=== PATIENT | female | born 1945 | race Caucasian/White ===

== ENCOUNTER 2017-11-29 12:39 | Emergency (ER) | payer MEDICARE ==
[2017-11-29 13:36] VITALS: BP 135/68
--- NOTE | 2017-11-29 14:13 | UC ---
Complaint Female HPI - HPI Summary HPI Summary: IN-ROOM NOTE: A 72 y/o F presents to E with c/o dysuria onset two days ago. Associated sx: urgency. She was unable to sleep due to having to use the bathroom. Denies fever , back pain aside from baseline. She is feeling healthy otherwise. Pt is taking Pyridium. Pt recently travelled to [facility]. She's unsure if she's ever had a UTI before. NKDA. Prev hospitalizations in 2017. 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 Pt was seen at [facility] yesterday for follow-up, she sees Dr. Singh. NOTE: Vital signs stable. Afebrile. 5/10 dysuria. Visit hx is significant for hematuria. Pt is not on anti-HTN medications. NURSE'S NOTE: Urinary symptoms that started 2 days ago. Patient called her PCP today, but they had no appointments available. Patient started taking Phenazopyridine yesterday. - History Of Current Complaint Chief Complaint: UCGU Stated Complaint: URINARY ISSUE Hx Obtained From: Patient Onset/Duration: Lasting Days, Still Present Timing: Constant Severity Initially: Moderate Severity Currently: Moderate Pain Intensity: 5 Pain Scale Used: 0-10 Numeric Associated Signs And Symptoms: Negative: Fever, Back Pain - Allergies/Home Medications Allergies/Adverse Reactions: Allergies Allergy/AdvReac Type Severity Reaction Status Date / Time No Known Allergies Allergy Verified 11/29/17 13:35 Home Medications: Home Medications Anastrozole (NF) [Arimidex (NF)] 1 mg PO DAILY 11/29/17 [History Confirmed 11/29] Phenazopyridine HCl [Phenazopyridine 100 mg tab] 100 mg PO Q8HR 11/29/17 [ History Confirmed 11/29/17] PMH/Surg Hx/FS Hx/Imm Hx Previously Healthy: No - carcinoma in L breast Other Cardiovascular History: neg: HTN Other Respiratory History: neg: COPD - Surgical History Surgical History: Yes Surgery Procedure, Year, and Place: hysterectomy, appendectomy, hernia repair x3 with mesh, cholecystectomy, tonsillectomy, lumpectomy on right breast- 2017 - Family History Family History: CA; alz - Social History Occupation: Retired Lives: Alone Alcohol Use: Rare Substance Use Type: None Smoking Status (MU): Former Smoker Review of Systems Constitutional: Negative - fever Genitourinary: Dysuria, Urgency Musculoskeletal: Negative - back pain All Other Systems Reviewed And Are Negative: Yes - Comments Additional Review of Systems Comments: POSITIVE: URGENCY, DYSURIA NEGATIVE: FEVER, BACK PAIN Physical Exam - Summary Physical Exam Summary: Appearance: The patient is well-appearing, is in no pain distress, and is well- nourished. Eyes: Conjunctiva are clear. ENT: The hearing is grossly normal, the pharynx is normal, and the TMs are normal. There is no muffled or hoarse voice. Neck: The neck is supple and there is no lymphadenopathy. Respiratory: The chest is nontender. The lungs are clear, there are normal breath sounds, and there is no respiratory distress. Cardiovascular: Heart is regular rate and rhythm. There is no murmur. Abdomen: The abdomen is soft and nontender. There is no organomegaly. NO CVA TENDERNESS. Bowel sounds: present Musculoskeletal: Strength is intact. The patient moves all extremities. Neurological: The patient is alert. Psychological: The patient displays age appropriate behavior Skin: Negative for rashes. Triage Information Reviewed: Yes Vital Signs: Initial Vital Signs Temp 98.9 F 11/29/17 13:27 Pulse 58 11/29/17 13:27 Resp 20 11/29/17 13:27 BP 135/68 11/29/17 13:27 Pulse Ox 98 11/29/17 13:27 Vital Signs Reviewed: Yes Complaint Female Dx - Course Course Of Treatment: Medications have been included in the original chart and reviewed. Pre-Hypertensive BP reading of 135/68; patient referred to PCP for follow-up. A 72 y/o F presents with urinary sx consistent with cystitis. Dx: cystitis. - Differential Dx/Diagnosis Provider Diagnoses: 1. Cystitis. 2. Elevated blood pressure without diagnosis of hypertension. Discharge - Sign-Out/Discharge Documenting (check all that apply): Patient Departure - DC All imaging exams completed and their final reports reviewed: No Studies - Discharge Plan Condition: Stable Disposition: HOME Prescriptions: Sulfamethox/Trimethoprim DS* [Bactrim DS 800/160 TAB*] 1 tab PO BID #14 tab MDD 2 Referrals: Anastacio Singh MD [Primary Care Provider] - Additional Instructions: PLEASE SEEK CARE AT THE EMERGENCY DEPARTMENT IF SYMPTOMS WORSEN OR IF NEW SYMPTOMS DEVELOP. FOLLOW UP WITH YOUR PRIMARY CARE PHYSICIAN. Your blood pressure reading today was 135/68, indicating HYPERTENSION. Follow- up with your primary care provider within 4 weeks for blood pressure readings and further evaluation. WE DISCUSSED: 1. You have an infection of your bladder. 2. I have given U an antibiotic to take twice a day for 7 days. 3. You should begin to get better within 2 days. You should not have any fever or increased pain. If you have any increased pain or temperature or you are not getting better in 2 days, recheck or call us. 4. I will be here in 2 days and you can call me or come back to see me if you are not getting better. - Billing Disposition and Condition Condition: STABLE Disposition: Home - Attestation Statements Document Initiated by Kelleyibarnav: Yes Documenting Scribe: Sathish Wells Provider For Whom Jonathan is Documenting (Include Credential): Mann Alejandra MD Scribe Attestation: ISathish, scribed for Mann Alejandra MD on 11/29/17 at 1426. Scribe Documentation Reviewed: Yes Provider Attestation: The documentation as recorded by the kelleyibarnav, Sathish Wells accurately reflects the service I personally performed and the decisions made by me, Mann Alejandra MD Lab Results - Lab Results Lab Results: 11/29/17 13:33 POC Urine Color Forsan POC Urine Clarity Clear POC Urine pH 6.0 POC Ur Specif Spur 1.015 POC Urine Protein 2+ A POC Ur Glucose (UA) Trace A POC Urine Ketones Trace A POC Urine Blood 3+ A POC Urine Nitrite Positive A POC Urine Bilirubin 1+ A POC Urine Urobilinogen 1.0 POC U Leukocyte Esteras 3+ A
--- NOTE | 2017-12-01 16:03 | UC ---
- Progress Note Progress Note: caLL patient if symptoms are continuing in anyway Uti culture shows resistance to BActrim will change to Keflex 500 mg po bid for 7 days Discharge - Sign-Out/Discharge Documenting (check all that apply): Post-Discharge Follow Up All imaging exams completed and their final reports reviewed: No Studies - Discharge Plan Condition: Stable Disposition: HOME Prescriptions: Sulfamethox/Trimethoprim DS* [Bactrim DS 800/160 TAB*] 1 tab PO BID #14 tab MDD 2 Referrals: Anastacio Singh MD [Primary Care Provider] - Additional Instructions: PLEASE SEEK CARE AT THE EMERGENCY DEPARTMENT IF SYMPTOMS WORSEN OR IF NEW SYMPTOMS DEVELOP. FOLLOW UP WITH YOUR PRIMARY CARE PHYSICIAN. Your blood pressure reading today was 135/68, indicating HYPERTENSION. Follow- up with your primary care provider within 4 weeks for blood pressure readings and further evaluation. WE DISCUSSED: 1. You have an infection of your bladder. 2. I have given U an antibiotic to take twice a day for 7 days. 3. You should begin to get better within 2 days. You should not have any fever or increased pain. If you have any increased pain or temperature or you are not getting better in 2 days, recheck or call us. 4. I will be here in 2 days and you can call me or come back to see me if you are not getting better. - Billing Disposition and Condition Condition: STABLE Disposition: Home
== END 2017-11-29 14:25 | disposition home or self-care (01) ==
LOC: UCEAST 12:39
DX: N30.90 Cystitis, unspecified without hematuria (principal); R03.0 Elevated blood-pressure reading, without diagnosis of hypertension; Z87.891 Personal history of nicotine dependence
CPT/HCPCS: 81003; 87077; 87086; 87186; 99202; G0463

== ENCOUNTER 2018-10-19 17:43 | Emergency (ER) | payer MEDICARE ==
[2018-10-19 18:38] LABS: ABS Basophils 0.1 10^3/ul (0-0.2); ABS Eosinophils 0.2 10^3/ul (0-0.6); ABS Lymphocytes 2.3 10^3/ul (1.0-4.8); ABS Neutrophils 5.9 10^3/ul (1.5-7.7); Eosinophil % 1.8 %; Hematocrit 43 % (35-47); Hemoglobin 14.2 g/dL (12.0-16.0); Lymphocyte % 24.7 %; Mean Corpuscular HGB Conc 33 g/dL (31-36); Mean Corpuscular Hemoglobin 30 pg (27-31); Mean Corpuscular Volume 90 fL (80-97); Mean Platelet Volume 7.5 fL (7.4-10.4); Nucleated Red Blood Cells % 0.2; Platelet Count 359 10^3/uL (150-450); Red Blood Count 4.77 10^6 /uL (3.70-4.87); Red Cell Distribution Width 13 % (10-15); White Blood Count 9.5 10^3/uL (3.5-10.8)
[2018-10-19 18:43] LABS: INR 0.92 (0.82-1.09)
[2018-10-19 19:01] LABS: Albumin 4.1 g/dL (3.2-5.2); Albumin/Globulin Ratio 1.1 (1-3); BUN/Creatinine Ratio 18.7 (8-20); EGFR African American 73.5 (>60); EGFR Non-African American 60.8 (>60); Globulin 3.6 g/dL (2-4); Total Bilirubin 0.3 mg/dL (0.2-1.0); Total Protein 7.7 g/dL (6.4-8.9)
[2018-10-19 19:03] LABS: Troponin I 0.01 ng/mL (<0.04)
[2018-10-19 19:05] LABS: Activated Partial Thrombo Time 31.2 seconds (26.0-38.0)
--- NOTE | 2018-10-19 19:09 | ED ---
HPI Chest Pain - HPI Summary HPI Summary: 73 year old F presenting to [facility] accompanied by son complains of increasing mid sternal chest pain after tripping and falling onto her chest and right side of face 12 days ago while on vacation in [place]. The patient rates the pain 6/ 10 in severity. Symptoms aggravated by coughing, position changes, movement, deep breathing, sneezing. Symptoms alleviated by aspirin, Tylenol, prescription ibuprofen. Son states they returned from [place] 3 days ago. Patient states that a few days ago, while moving things, she noticed upper back pain. Patient reports difficultly breathing. Patient reports insomnia. She states that after the fall, she had ecchymosis on her chest and some abrasions on the right side of her face which have since resolved. - History of Current Complaint Chief Complaint: EDChestWallPain Time Seen by Provider: 10/19/18 18:54 Hx Obtained From: Patient, Family/Director Of Corporate Marketing - Son Onset/Duration: Started Days Ago - 12, Still Present Timing: Constant Current Severity: Moderate Pain Intensity: 6 Pain Scale Used: 0-10 Numeric Chest Pain Location: Mid Sternal Aggravating Factor(s): Other: - coughing, position changes, movement, deep breathing, sneezing Alleviating Factor(s): Other: - aspirin, Tylenol, prescription ibuprofe Associated Signs and Symptoms: Positive: Other: - upper back pain, difficulty breathing, insomnia - Allergy/Home Medications Allergies/Adverse Reactions: Allergies Allergy/AdvReac Type Severity Reaction Status Date / Time No Known Allergies Allergy Verified 10/19/18 17:56 PMH/Surg Hx/FS Hx/Imm Hx Endocrine/Hematology History: Denies: Hx Diabetes, Hx Systemic Lupus Erythematosus, Hx Thyroid Disease Cardiovascular History: Denies: Hx Congestive Heart Failure, Hx Hypertension Respiratory History: Denies: Hx Asthma, Hx Chronic Obstructive Pulmonary Disease (COPD) GI History: Denies: Hx Ulcer History: Denies: Hx Dialysis, Hx Renal Disease Musculoskeletal History: Denies: Hx Rheumatoid Arthritis - Cancer History Cancer Type, Location and Year: Breast CA with lumpectomy Hx Chemotherapy: No - Surgical History Surgery Procedure, Year, and Place: hysterectomy, appendectomy, hernia repair x3 with mesh, cholecystectomy, tonsillectomy, lumpectomy on right breast- 2017 Infectious Disease History: No Infectious Disease History: Denies: Hx Hepatitis, Hx Human Immunodeficiency Virus (HIV), Traveled Outside the [place] in Last 30 Days - Family History Family History: Cancer, Alzheimer's - Social History Alcohol Use: Rare Hx Substance Use: No Substance Use Type: Reports: None Hx Tobacco Use: Yes Smoking Status (MU): Former Smoker Review of Systems Positive: Other - difficulty breathing Positive: Other - chest pain, upper back pain Positive: Other - insomnia All Other Systems Reviewed And Are Negative: Yes Physical Exam - Summary Physical Exam Summary: VITAL SIGNS: Reviewed. GENERAL: Patient is a well-developed and nourished FEMALE who is lying comfortable in the stretcher. Patient is not in any acute respiratory distress. HEAD AND FACE: No signs of trauma. No ecchymosis, hematomas or skull depressions. No sinus tenderness. EYES: PERRLA, EOMI x 2, No injected conjunctiva, no nystagmus. EARS: Hearing grossly intact. Ear canals and tympanic membranes are within normal limits. MOUTH: Oropharynx within normal limits. NECK: Supple, trachea is midline, no adenopathy, no JVD, no carotid bruit, no c- spine tenderness, neck with full ROM. CHEST: Tenderness in the anterior aspect of chest BACK: Tenderness in the paraspinal muscle in the T-spine LUNGS: Clear to auscultation bilaterally. No wheezing or crackles. CVS: Regular rate and rhythm, S1 and S2 present, no murmurs or gallops appreciated. ABDOMEN: Soft, non-tender. No signs of distention. No rebound, no guarding, and no masses palpated. Bowel sounds are normal. EXTREMITIES: FROM in all major joints, no edema, no cyanosis or clubbing. NEURO: Alert and oriented x 3. No acute neurological deficits. Speech is normal and follows commands. SKIN: Dry and warm. Triage Information Reviewed: Yes Vital Signs On Initial Exam: Initial Vitals Temp Pulse Resp BP Pulse Ox 98.1 F 56 16 167/89 97 10/19/18 17:51 10/19/18 17:51 10/19/18 17:51 10/19/18 17:51 10/19/18 17:51 Vital Signs Reviewed: Yes Diagnostics - Vital Signs Vital Signs Temp Pulse Resp BP Pulse Ox 10/19/18 17:51 98.1 F 56 16 167/89 97 - Laboratory Lab Results: Lab Results 10/19/18 10/19/18 10/19/18 Range/Units 18:27 18:27 18:27 WBC 9.5 (3.5-10.8) 10^3/uL RBC 4.77 (3.70-4.87) 10^6 /uL Hgb 14.2 (12.0-16.0) g/dL Hct 43 (35-47) % MCV 90 (80-97) fL MCH 30 (27-31) pg MCHC 33 (31-36) g/dL RDW 13 (10-15) % Plt Count 359 (150-450) 10^3/uL MPV 7.5 (7.4-10.4) fL Neut % (Auto) 61.8 % Lymph % (Auto) 24.7 % [place] % (Auto) 10.5 % Eos % (Auto) 1.8 % Baso % (Auto) 1.2 % Absolute Neuts (auto) 5.9 (1.5-7.7) 10^3/ul Absolute Lymphs (auto) 2.3 (1.0-4.8) 10^3/ul Absolute Monos (auto) 1.0 H (0-0.8) 10^3/ul Absolute Eos (auto) 0.2 (0-0.6) 10^3/ul Absolute Basos (auto) 0.1 (0-0.2) 10^3/ul Absolute Nucleated RBC 0.0 10^3/ul Nucleated RBC % 0.2 INR (Anticoag Therapy) 0.92 (0.82-1.09) APTT Pending Sodium 139 (135-145) mmol/L Potassium Pending Chloride 105 (101-111) mmol/L Carbon Dioxide 28 (22-32) mmol/L Anion Gap Pending BUN 17 (6-24) mg/dL Creatinine 0.91 (0.51-0.95) mg/dL Est GFR ( Amer) 73.5 (>60) Est GFR (Non-Af Amer) 60.8 (>60) BUN/Creatinine Ratio 18.7 (8-20) Glucose 95 (70-100) mg/dL Calcium 9.0 (8.6-10.3) mg/dL Total Bilirubin 0.30 (0.2-1.0) mg/dL AST Pending ALT 14 (7-52) U/L Alkaline Phosphatase 51 (34-104) U/L Total Creatine Kinase Pending CK-MB (CK-2) Pending Troponin I 0.01 (<0.04) ng/mL C-Reactive Protein Pending Total Protein 7.7 (6.4-8.9) g/dL Albumin 4.1 (3.2-5.2) g/dL Globulin 3.6 (2-4) g/dL Albumin/Globulin Ratio 1.1 (1-3) TSH Pending Result Diagrams: 10/19/18 18:27 10/19/18 18:27 Lab Statement: Any lab studies that have been ordered have been reviewed, and results considered in the medical decision making process. - Radiology Chest x-ray Radiology Interpretation Completed By: ED Physician Summary of Radiographic Findings: No acute process. Pending official report. - EKG 1748 Cardiac Rate: NL - 64 BPM EKG Rhythm: Sinus Rhythm EKG Comparison: No Significant Change - 06/16/07 Summary of EKG Findings: Sinus rhytm at [address] elevations. Similar to previous EKG done on 06/16/07 Re-Evaluation - Re-Evaluation First Eval Re-Evaluation Time: 20:48 Comment: patient given update on imaging report. discussed discharge plan. patient and son are agreeable to discharge Chest Pain Course/Dx - Course Assessment/Plan: 73 year old F presenting to [facility] accompanied by son complains of increasing mid sternal chest pain after tripping and falling onto her chest and right side of face 12 days ago while on vacation in [place]. The patient rates the pain 6/10 in severity. Symptoms aggravated by coughing, position changes, movement, deep breathing, and sneezing. Symptoms alleviated by aspirin , Tylenol, and prescription ibuprofen. Son states they returned from [place] 3 days ago. Patient states that a few days ago, while moving things, she noticed upper back pain. Patient reports difficulty breathing. Patient reports insomnia. She states that after the fall, she had ecchymosis on her chest and some abrasions on the right side of her face which have since resolved. Chest x -ray impression: No acute pathology. There is no apparent fractures of the ribs. In the ED course the patient was given Toradol for the pain. Blood work without a significant abnormality. I discussed all the findings and test results with the patient. Patient was instructed to return to the emergency room immediately if any of the symptoms return worsens. Plan of care was discussed with the patient and understands and agrees. All questions were answered at patient satisfaction. There were no further complaints or concerns. Lung exam before discharge: CTA B/L. Good air exchange. No wheezing or crackles heard. CVS: S1 and S2 present. No murmurs appreciated. Patient is alert and oriented x 3. Patient is hemodynamically stable. Patient will be discharged home with follow up PCP in the next 2-3 days. - Diagnoses Provider Diagnoses: Chest pain Discharge - Sign-Out/Discharge Documenting (check all that apply): Patient Departure - Discharge Patient Received Moderate/Deep Sedation with Procedure: No - Discharge Plan Condition: Stable Disposition: HOME Prescriptions: HYDROcodone/ACETAMIN 5-325 MG* [Turner 5-325 TAB*] 1 tab PO Q6H PRN #10 tab MDD 4 PRN Reason: Pain Ibuprofen TAB* [Motrin TAB* 600 MG] 600 mg PO Q8H PRN #20 tab PRN Reason: Pain Patient Education Materials: Chest Pain (ED) Referrals: Anastaico Singh MD [Primary Care Provider] - 3 Days Additional Instructions: Follow up with your primary care provider in 3 days. Return to the Emergency Department for new or worsening symptoms. - Billing Disposition and Condition Condition: STABLE Disposition: Home - Attestation Statements Document Initiated by Jonathan: Yes Documenting Scribe: Latonia Godwin Provider For Whom Jonathan is Documenting (Include Credential): Tito Doyle MD Scribe Attestation: Latonia Escobar, scribed for Tito Doyle MD on 10/21/18 at 2016. Scribe Documentation Reviewed: Yes Provider Attestation: The documentation as recorded by the Latonia chu accurately reflects the service I personally performed and the decisions made by , Tito Doyle MD Status of Scribe Document: Viewed
[2018-10-19 19:17] LABS: C Reactive Protein 2.26 mg/L (<8.01)
[2018-10-19 19:18] LABS: Potassium 4.7 mmol/L (3.5-5.0)
[2018-10-19 19:22] LABS: CKMB ng/mL 1.1 ng/mL (0.6-6.3)
[2018-10-19 19:40] LABS: TSH (Thyroid Stimulating Horm) 1.69 mcIU/mL (0.34-5.60)
[2018-10-19] MEDS ORDERED: Ketorolac INJ* 30 MG/ML 1 ML VIAL IV PUSH ONE (20:43)
[2018-10-19] MEDS ORDERED: HYDROcodone/ACETAMIN 5-325 MG* 1 TAB PO ONE (20:52)
[2018-10-19] MEDS ORDERED: Ketorolac *IM* INJ* 60 MG/2 ML VIAL IM ONE (21:01)
[2018-10-19 21:23] VITALS: BP 158/78
== END 2018-10-19 21:22 | disposition home or self-care (01) ==
LOC: ED 17:43
DX: R07.9 Chest pain, unspecified (principal); W01.0XXA Fall on same level from slipping, tripping and stumbling without subsequent striking against object, initial encounter; Y92.89 Other specified places as the place of occurrence of the external cause; Z87.891 Personal history of nicotine dependence
CPT/HCPCS: 36415; 71046; 80053; 82550; 82553; 84443; 84484; 85025; 85610; 85730; 86140; 93005; 96372; 96374; 99282; J1885